=== PATIENT | female | born 1990 | race American Indian/Alaskan Native ===

== ENCOUNTER 2017-12-19 12:47 | Emergency (ER) | payer BC ==
[2017-12-19 13:10] VITALS: BP 134/69
[2017-12-19] MEDS ORDERED: MOTRIN PO ONE (14:09)
--- NOTE | 2017-12-19 14:10 | Emergency Department Report ---
Blank Doc - Documentation Documentation: Patient is a 27-year-old female presenting with several days of left lower anterior chest pain. Patient states this is underneath her left breast. Patient had a cough productive of clear sputum slight sore throat has mild shortness of breath past several days well. Patient refuses exam clear lungs heart tones are normal. Patient be sent for x-ray to rule out atypical pneumonia since patient is a smoker.
[2017-12-19 14:41] LABS: HCG Qualitative,Urine Negative (Negative)
--- NOTE | 2017-12-19 16:21 | Emergency Department Report ---
- General Chief Complaint: Upper Respiratory Infection Stated Complaint: BREAST PAIN, COUGH Time Seen by Provider: 12/19/17 13:58 Source: patient Mode of arrival: Ambulatory Limitations: No Limitations - History of Present Illness Initial Comments: 19-year-old female past medical history smoker, asthma, pneumonia presents with complaint of 5 days of persistent cough. Slightly productive. Denies fevers or chills. Awake alert and oriented 3. No audible wheezing or dyspnea. Also complaining of discomfort left breast tissue. Denies any skin changes or nipple discharge. Awake alert and oriented 3 not in acute distress. MD Complaint: cough - Related Data Previous Rx's Medication Instructions Recorded Last Taken Type Albuterol Sulfate [Ventolin Hfa] 1 puff IH Q4H PRN #1 hfa.aer.ad 12/19/17 Unknown Rx Azithromycin [Zithromax Z-VEGA] 250 mg PO QDAY #1 pack 12/19/17 Unknown Rx Ibuprofen [Motrin] 800 mg PO Q8HR PRN #20 tablet 12/19/17 Unknown Rx Phenylephrine/Dm/Acetaminop/GG 10 ml PO Q6H PRN #1 liquid 12/19/17 Unknown Rx [Mucinex Ikhl-Dco-Jolbuwnjsw Lq] Allergies Allergy/AdvReac Type Severity Reaction Status Date / Time codeine Allergy Hives Verified 12/19/17 13:11 ED Review of Systems ROS: Stated complaint: BREAST PAIN, COUGH Other details as noted in HPI Constitutional: denies: chills, fever Eyes: denies: eye pain, eye discharge, vision change ENT: denies: ear pain, throat pain Respiratory: cough. denies: shortness of breath, wheezing Cardiovascular: denies: chest pain, palpitations Endocrine: no symptoms reported Gastrointestinal: denies: abdominal pain, nausea, diarrhea Genitourinary: denies: urgency, dysuria, discharge Musculoskeletal: denies: back pain, joint swelling, arthralgia Skin: as per HPI (left breast discomfort). denies: rash, lesions Neurological: denies: headache, weakness, paresthesias Psychiatric: denies: anxiety, depression Hematological/Lymphatic: denies: easy bleeding, easy bruising ED Past Medical Hx - Past Medical History Previous Medical History?: No Additional medical history: pneumonia,bronchitis - Surgical History Past Surgical History?: Yes Additional Surgical History: tonsillectomy - Social History Smoking Status: Current Every Day Smoker Substance Use Type: Alcohol - Medications Home Medications: Home Medications Medication Instructions Recorded Confirmed Last Taken Type Albuterol Sulfate [Ventolin Hfa] 1 puff IH Q4H PRN #1 hfa.aer.ad 12/19/17 Unknown Rx Azithromycin [Zithromax Z-VEGA] 250 mg PO QDAY #1 pack 12/19/17 Unknown Rx Ibuprofen [Motrin] 800 mg PO Q8HR PRN #20 tablet 12/19/17 Unknown Rx Phenylephrine/Dm/Acetaminop/GG 10 ml PO Q6H PRN #1 liquid 12/19/17 Unknown Rx [Mucinex Zjqy-Jhy-Sucfbuvoeg Lq] ED Physical Exam - General Limitations: No Limitations General appearance: alert, in no apparent distress - Head Head exam: Present: atraumatic, normocephalic - Eye Eye exam: Present: normal appearance, PERRL, EOMI - ENT ENT exam: Present: mucous membranes moist - Neck Neck exam: Present: normal inspection - Respiratory Respiratory exam: Present: normal lung sounds bilaterally. Absent: respiratory distress - Cardiovascular Cardiovascular Exam: Present: regular rate, normal rhythm. Absent: systolic murmur, diastolic murmur, rubs, gallop - GI/Abdominal GI/Abdominal exam: Present: soft, normal bowel sounds - Extremities Exam Extremities exam: Present: normal inspection - Back Exam Back exam: Present: normal inspection - Neurological Exam Neurological exam: Present: alert, oriented X3, CN II-XII intact, normal gait - Psychiatric Psychiatric exam: Present: normal affect, normal mood - Skin Skin exam: Present: warm, dry, intact, normal color, other (no palpable masses on the left breast examination). Absent: rash ED Course Vital Signs 12/19/17 12/19/17 13:05 14:30 Temperature 99 F Pulse Rate 95 H Respiratory 18 18 Rate Blood Pressure 134/69 O2 Sat by Pulse 100 Oximetry ED Medical Decision Making - Medical Decision Making A/P: Bronchitis, possible small breast mass 1- chest x-ray are normal limits no significant consolidations. 2- vital signs stable for discharge 3- azithromycin course, albuterol, Mucinex, Motrin when necessary. Smoking cessation and advised 4- all primary care and breast clinic for possible fibroadenoma/fibrocystic change of left breast Critical care attestation.: If time is entered above; I have spent that time in minutes in the direct care of this critically ill patient, excluding procedure time. ED Disposition Clinical Impression: Bronchitis, Encounter for screening breast examination Disposition: TO HOME OR SELFCARE Is pt being admited?: No Does the pt Need Aspirin: No Condition: Stable Instructions: Breast Self-exam (ED), Acute Bronchitis (ED) Additional Instructions: [email or web address] Prescriptions: Albuterol Sulfate [Ventolin Hfa] 1 puff IH Q4H PRN #1 hfa.aer.ad PRN Reason: Cough Azithromycin [Zithromax Z-VEGA] 250 mg PO QDAY #1 pack Ibuprofen [Motrin] 800 mg PO Q8HR PRN #20 tablet PRN Reason: Pain Phenylephrine/Dm/Acetaminop/GG [Mucinex Pwcd-Shs-Yctflnqhah Lq] 10 ml PO Q6H PRN #1 liquid PRN Reason: Cough Referrals: PRIMARY MD KATIA [Primary Care Provider] - 3-5 Days COSME BOYKIN MD [Staff Physician] - 3-5 Days [facility] [Provider Group] - 3-5 Days Forms: Accompanied Note, Work/School Release Form(ED) Time of Disposition: 16:18
--- NOTE | 2017-12-19 16:41 | XRay Report ---
FINAL REPORT EXAM: XR CHEST ROUTINE 2V HISTORY: cough TECHNIQUE: PA and lateral views of the chest PRIORS: None. FINDINGS: Lines, tubes, and devices: N/A Lungs and pleura: Trachea is normal in position. Lungs are clear of infiltrate, pleural effusion, vascular congestion, or pneumothorax. Cardiomediastinal silhouette: Cardiac and mediastinal silhouettes are unremarkable. Other: Bony structures are intact. IMPRESSION: No acute cardiopulmonary process seen.
== END 2017-12-19 14:00 | disposition home or self-care (01) ==
LOC: ED 12:47
DX: J40 Bronchitis, not specified as acute or chronic (principal); Z12.39 Encounter for other screening for malignant neoplasm of breast; Z88.5 Allergy status to narcotic agent; F17.200 Nicotine dependence, unspecified, uncomplicated
CPT/HCPCS: 71046; 81025; 99284